=== PATIENT | female | born 1980 | race Caucasian/White ===

== ENCOUNTER → 2016-09-18 | Outpatient (CLI) | payer OTHER ==
[2016-09-18 14:31] VITALS: BP 129/75; PULSE 72; TEMP 97.7; BMI 29.8
--- NOTE | 2016-09-18 14:40 | P.BASOAP ---
Subjective Principal diagnosis: Morbid obesity Patient doing well today. She has maintained her weight since her visit in June. No significant hunger issues. Denies heartburn. Not taking any antacids currently. She has been exercising on a fairly regular basis. She is still having issues with a rash beneath the pannus that she treats with medicated powder. She has nausea without a [place] was otherwise able to tolerate all foods. She is due for blood work today. Objective - Vital Signs Vital signs: Vital Signs Temp 97.7 F 09/18/16 14:10 Pulse 72 09/18/16 14:10 Resp BP 129/75 09/18/16 14:10 Pulse Ox Intake & Output 09/17/16 09/18/16 09/18/16 18:59 06:59 18:59 Weight 86.409 kg - Exam Abdomen: Soft, nontender, nondistended, minimal irritation underneath the pannus Assessment/Plan (1) Obesities, morbid Narrative/Plan: Continue to follow advised dietary and exercise regimen. We'll check one year blood work at this time. Follow-up reevaluation in 3-6 months. Plan: Date: 09/18/16 Initial Weight: 130.294 kg Initial BMI: 44.9 Current Weight: 86.409 kg Current BMI: 29.8 Type of Surgery: Total Volume in Band: Previous Volume: Volume Removed: Volume Added: Band Size:
[2016-09-18 15:21] LABS: CH 33.2; CHCM 35.1; HCT 38.8 % (34.0-46.0); HDW 2.88; HGB 13.3 gm/dL (11.4-16.0); MCH 32.7 pg (25.0-35.0); MCHC 34.4 g/dL (31.0-37.0); MCV 95.2 fL (80.0-100.0); Mean Platelet Volume 7.9; RBC 4.07 m/uL (3.80-5.40); WBC 6.5 k/uL (3.8-10.6)
[2016-09-18 15:32] LABS: ALT 29 U/L (9-52); AST 20 U/L (14-36); Alkaline Phosphatase 72 U/L (38-126); Anion Gap 11 mmol/L; Blood Urea Nitrogen 17 mg/dL (7-17); Calcium 9.1 mg/dL (8.4-10.2); Carbon Dioxide 28 mmol/L (22-30); Chloride 103 mmol/L (98-107); Glucose 87 mg/dL (74-99); Non-African American GFR(MDRD) >60 (>60 ml/min/1.73 sqM); Potassium 3.7 mmol/L (3.5-5.1); Sodium 142 mmol/L (137-145); Total Bilirubin 0.7 mg/dL (0.2-1.3); Total Protein 7.3 g/dL (6.3-8.2)
[2016-09-18 16:38] LABS: Vitamin B12 340 pg/mL (239-931)
== END | disposition home or self-care (01) ==
LOC: BARWHC3 13:53
PROVIDERS: ATTEND Surgery
DX: Z48.815 Encounter for surgical aftercare following surgery on the digestive system (principal); Z71.3 Dietary counseling and surveillance; E66.01 Morbid (severe) obesity due to excess calories; R11.0 Nausea; Z68.29 Body mass index [BMI] 29.0-29.9, adult
CPT/HCPCS: 36415; 80053; 82306; 82607; 82746; 84425; 85027; 99211

== ENCOUNTER → 2017-02-26 | Outpatient (CLI) | payer OTHER ==
[2017-02-26 15:10] VITALS: BP 133/76; PULSE 64; RESP 20; TEMP 98.4; BMI 30.7
--- NOTE | 2017-02-26 15:43 | P.BASOAP ---
Subjective Principal diagnosis: Morbid obesity Patient doing well today. Her weight is up 5 pounds. Denies hunger. States that her weight has been fluctuating over the last several months. She has had some mild epigastric discomfort particularly during mealtime. She stopped her antiacids. Objective - Vital Signs Vital signs: Vital Signs Temp 98.4 F 02/26/17 15:02 Pulse 64 02/26/17 15:02 Resp 20 02/26/17 15:02 BP 133/76 02/26/17 15:02 Pulse Ox Intake & Output 02/25/17 02/26/17 02/26/17 18:59 06:59 18:59 Weight 88.813 kg - Exam Abdomen: Soft, nontender, nondistended Assessment/Plan (1) Obesities, morbid Narrative/Plan: Resume PPI. Continue dietary and exercise regimen. Plan upper endoscopy if the patient's pain persists. Follow-up in the office 3-4 months. Plan: Date: 02/26/17 Initial Weight: 130.294 kg Initial BMI: 44.9 Current Weight: 88.813 kg Current BMI: 30.7 Type of Surgery: Total Volume in Band: Previous Volume: Volume Removed: Volume Added: Band Size:
== END | disposition home or self-care (01) ==
LOC: BARWHC3 14:24
PROVIDERS: ATTEND Surgery
DX: E66.01 Morbid (severe) obesity due to excess calories (principal)
CPT/HCPCS: 99211

== ENCOUNTER → 2017-10-29 | Outpatient (CLI) | payer OTHER ==
[2017-10-29 15:16] VITALS: BP 130/86; PULSE 69; RESP 16; TEMP 98.9; BMI 31.6
--- NOTE | 2017-10-29 16:21 | P.BASOAP ---
Subjective Progress Note Date: 10/29/17 Principal diagnosis: Morbid obesity Patient doing well today. Weight increased slightly after her recent trip to [place]. No nausea vomiting, no GERD, no pain. 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 Taking her antiacids on an as-needed basis. Objective - Vital Signs Vital signs: Vital Signs Temp 98.9 F 10/29/17 15:12 Pulse 69 10/29/17 15:12 Resp 16 10/29/17 15:12 BP 130/86 10/29/17 15:12 Pulse Ox Intake & Output 10/28/17 10/29/17 10/29/17 18:59 06:59 18:59 Weight 91.626 kg - Exam Abdomen: Soft, nontender, nondistended Assessment/Plan (1) Obesities, morbid Narrative/Plan: We'll review the labs done by endocrinology. Continue dietary and exercise regimen. Follow-up 6-12 months. Plan: Date: 10/29/17 Initial Weight: 130.294 kg Initial BMI: 44.9 Current Weight: 91.626 kg Current BMI: 31.6 Type of Surgery: Total Volume in Band: Previous Volume: Volume Removed: Volume Added: Band Size:
== END | disposition home or self-care (01) ==
LOC: BARWHC3 14:59
PROVIDERS: ATTEND Surgery
DX: E66.01 Morbid (severe) obesity due to excess calories (principal); Z68.31 Body mass index [BMI] 31.0-31.9, adult
CPT/HCPCS: 99211

== ENCOUNTER → 2019-01-13 | Outpatient (CLI) | payer OTHER ==
--- NOTE | 2019-01-13 13:00 | P.BASOAP ---
Subjective Progress Note Date: 01/13/19 Principal diagnosis: Morbid obesity Patient here today for follow-up. Objective evaluation. Sleeve gastrectomy performed 3 years ago. Doing well at this time. Last visit 1 year ago. Since then she has gained 17 pounds. Not eating anymore than previously. Possibly some worse food choices. Denies heartburn or vomiting. Does not take antiacids. No abdominal pain. Had vitamin D level checked this morning by endocrinology. Objective - Exam Abdomen: Soft, nontender, nondistended Assessment/Plan (1) Obesities, morbid Narrative/Plan: Continue dietary and exercise regimen. Monitor food intake. Check annual labs. Follow-up 1 year. Plan: Date: Initial Weight: 130.294 kg Initial BMI: Current Weight: Current BMI: Type of Surgery: Total Volume in Band: Previous Volume: Volume Removed: Volume Added: Band Size:
[2019-01-13 14:28] LABS: HGB 10.2 gm/dL (11.4-16.0); Hypochromasia Moderate; MCH 25.8 pg (25.0-35.0); MCHC 31.9 g/dL (31.0-37.0); Mean Platelet Volume 8.4; Platelet Count 232 k/uL (150-450); RBC 3.95 m/uL (3.80-5.40); RDW 14.9 % (11.5-15.5); WBC 4.5 k/uL (3.8-10.6)
[2019-01-13 16:24] VITALS: BP 121/83; PULSE 71; TEMP 98.3; BMI 34.2
[2019-01-13 19:15] LABS: African American GFR (CKD) 125.6 (60.0-200.0); Albumin 4.3 g/dL (3.80-4.90); Albumin/Globulin Ratio 2.05 (1.60-3.17); Anion Gap 6.7 mmol/L (4.00-12.00); BUN/Creat Ratio 18.57 Ratio (12.00-20.00); Calcium 9.2 mg/dL (8.7-10.3); Carbon Dioxide 27.3 mmol/L (21.6-31.8); Globulin 2.1 g/dL (1.6-3.3); Potassium 4.1 mmol/L (3.5-5.5); Total Bilirubin 0.5 mg/dL (0.3-1.2); Total Protein 6.4 g/dL (6.2-8.2)
[2019-01-13 19:20] LABS: Folate, Serum 7.8 ng/mL
== END | disposition home or self-care (01) ==
LOC: BARWHC3 12:37
PROVIDERS: ATTEND Surgery
DX: E66.01 Morbid (severe) obesity due to excess calories (principal); K90.89 Other intestinal malabsorption; Z68.34 Body mass index [BMI] 34.0-34.9, adult
CPT/HCPCS: 36415; 80053; 82607; 82746; 83540; 85027; 99211

== ENCOUNTER → 2019-03-09 | Outpatient (CLI) | payer OTHER ==
--- NOTE | 2019-03-09 09:03 | MM ---
Reason for exam: screening (asymptomatic). Baseline mammogram. History: Family history of breast cancer in maternal cousin at age 30 and breast cancer in maternal cousin at age 50. Physical Findings: Nurse did not find any significant physical abnormalities on exam. MG Screening Mammo w CAD Bilateral CC and MLO view(s) were taken. There are scattered fibroglandular densities. No suspicious abnormality. These results were verbally communicated with the patient and result sheet given to the patient on 03/09/19. ASSESSMENT: Negative, BI-RAD 1 RECOMMENDATION: Routine screening mammogram of both breasts in 1 year.
== END | disposition home or self-care (01) ==
LOC: RADMAMWWP 07:33
PROVIDERS: ATTEND Obstetrics & Gynecology
DX: Z12.31 Encounter for screening mammogram for malignant neoplasm of breast (principal)
CPT/HCPCS: 77067

== ENCOUNTER → 2021-02-07 | Outpatient (CLI) | payer OTHER ==
--- NOTE | 2021-02-09 11:36 | MM ---
Reason for exam: screening (asymptomatic). Last mammogram was performed 1 year and 11 months ago. History: Family history of breast cancer in maternal cousin at age 30 and breast cancer in maternal cousin at age 50. Physical Findings: A clinical breast exam by your physician is recommended on an annual basis and results should be correlated with mammographic findings. MG 3D Screening Mammo W/Cad Bilateral CC and MLO view(s) were taken. Prior study comparison: March 09, 2019, bilateral MG screening mammo w CAD. There are scattered fibroglandular densities. Stable benign calcifications. There is no discrete abnormality. No significant changes when compared with prior studies. ASSESSMENT: Benign, BI-RAD 2 RECOMMENDATION: Routine screening mammogram of both breasts in 1 year.
== END | disposition home or self-care (01) ==
LOC: RADMAMWWP 07:51
PROVIDERS: ATTEND Obstetrics & Gynecology
DX: Z08 Encounter for follow-up examination after completed treatment for malignant neoplasm (principal); Z80.3 Family history of malignant neoplasm of breast
CPT/HCPCS: 77063; 77067

== ENCOUNTER → 2022-10-20 | Outpatient (CLI) | payer OTHER ==
[2022-10-20 18:15] LABS: T4, Free (Free Thyroxine) 1.48 ng/dL (0.800-1.800)
== END | disposition home or self-care (01) ==
LOC: LABWHC1 11:55
PROVIDERS: ATTEND Internal Medicine
DX: E55.9 Vitamin D deficiency, unspecified (principal); E03.9 Hypothyroidism, unspecified
CPT/HCPCS: 36415; 82306; 84439; 84443

== ENCOUNTER → 2022-11-13 | Outpatient (CLI) | payer OTHER ==
--- NOTE | 2022-11-14 08:54 | MM ---
Reason for Exam: Screening (asymptomatic). Last mammogram was performed 1 year(s) and 9 month(s) ago. Patient History: Menarche at age 11. First Full-Term at age 27. Premenopausal. Maternal cousin had breast cancer, age 30. Maternal cousin had breast cancer, age 50. Risk Values: Meera 5 year model risk: 0.9%. NCI Lifetime model risk: 10.7%. Prior Study Comparison: 03/09/2019 Bilateral Screening Mammogram, [facility]. 02/07/2021 Bilateral Screening Mammogram, [facility]. Tissue Density: The breast tissue is heterogeneously dense. This may lower the sensitivity of mammography. Findings: Analyzed By CAD. Left breast: Asymmetry within the left breast middle depth measuring 7 cm and 3.7 cm from the nipple on CC view not definitively seen on MLO view. Right breast: There is no suspicious group of microcalcifications or new suspicious mass in either breast. Overall Assessment: Incomplete: need additional imaging evaluation, BI-RAD 0 Management: Diagnostic Mammogram of the left breast. A clinical breast exam by your physician is recommended on an annual basis and results should be correlated with mammographic findings. [facility] will attempt to contact patient to return for supplemental views and ultrasound if indicated. Electronically signed and approved by: Andre Funk DO
== END | disposition home or self-care (01) ==
LOC: RADMAMWWP 10:06
PROVIDERS: ATTEND Obstetrics & Gynecology
DX: Z12.31 Encounter for screening mammogram for malignant neoplasm of breast (principal); Z80.3 Family history of malignant neoplasm of breast
CPT/HCPCS: 77063; 77067

== ENCOUNTER → 2022-11-15 | Outpatient (CLI) | payer OTHER ==
--- NOTE | 2022-11-15 14:13 | MM ---
Reason for Exam: Additional evaluation requested from abnormal screening. Last screening mammogram was performed less than 1 month ago. Patient History: Menarche at age 11. First Full-Term at age 27. Premenopausal. Maternal cousin had breast cancer, age 30. Maternal cousin had breast cancer, age 50. Risk Values: Meera 5 year model risk: 0.9%. NCI Lifetime model risk: 10.7%. Prior Study Comparison: 03/09/2019 Bilateral Screening Mammogram, [facility]. 02/07/2021 Bilateral Screening Mammogram, [facility]. 11/13/2022 Bilateral MG 3D screening mammo w/cad, [facility]. Tissue Density: Left: The breast tissue is heterogeneously dense. This may lower the sensitivity of mammography. Findings: Analyzed By CAD. There is a persistent nodular density compression view with mildly spiculated margins measuring 0.5 x 0.7 cm located 6 cm in the nipple 12:00 position. Additional workup with ultrasound is recommended. Overall Assessment: Incomplete: need additional imaging evaluation, BI-RAD 0 Management: Diagnostic Breast Ultrasound of the left breast. A negative mammogram report should not preclude additional follow up of suspicious palpable abnormalities. Patient should continue monthly self breast exam. A clinical breast exam by your physician is recommended on an annual basis and results should be correlated with mammographic findings. Electronically signed and approved by: Erick Rainey D.O. Radiologis
--- NOTE | 2022-11-15 14:47 | USB ---
Reason for Exam: Additional evaluation requested from abnormal screening. Patient History: Menarche at age 11. First Full-Term at age 27. Premenopausal. Maternal cousin had breast cancer, age 30. Maternal cousin had breast cancer, age 50. Risk Values: Meera 5 year model risk: 0.9%. NCI Lifetime model risk: 10.7%. Technique: Method: Targeted. Prior Study Comparison: 03/09/2019 Bilateral Screening Mammogram, [facility]. 02/07/2021 Bilateral Screening Mammogram, [facility]. 11/13/2022 Bilateral MG 3D screening mammo w/cad, [facility]. Findings: The upper section of the breast of the left breast, the axilla of the left breast and the retroareolar of the left breast were scanned. There is a complex cystic area measuring 0.8 x 0.4 x 0.5 cm complex cystic area 6 cm from the nipple 11:00 position. This area appears to correspond to the mammographic finding. Overall Assessment: Probably benign, BI-RAD 3 Management: Diagnostic Mammogram of the left breast in 6 months. Diagnostic Breast Ultrasound of the left breast in 6 months. A clinical breast exam by your physician is recommended on an annual basis and results should be correlated with mammographic findings. This exam should not preclude additional follow-up of suspicious palpable abnormalities. Results were given to the patient verbally at the time of exam. Electronically signed and approved by: Erick Rainey D.O. Radiologis
== END | disposition home or self-care (01) ==
LOC: RADMAMWWP 13:35
PROVIDERS: ATTEND Obstetrics & Gynecology
DX: R92.8 Other abnormal and inconclusive findings on diagnostic imaging of breast (principal); Z80.3 Family history of malignant neoplasm of breast
CPT/HCPCS: 77061; 77065

== ENCOUNTER → 2023-05-21 | Outpatient (CLI) | payer BC ==
--- NOTE | 2023-05-21 09:47 | MM ---
Reason for Exam: Follow-up at short interval from prior study. Last screening mammogram was performed 6 month(s) ago. Patient History: Menarche at age 11. First Full-Term at age 27. Premenopausal. Maternal cousin had breast cancer, age 30. Maternal cousin had breast cancer, age 50. Last menstrual period: 05/03/2023 Risk Values: Meera 5 year model risk: 0.9%. NCI Lifetime model risk: 10.7%. Prior Study Comparison: 03/09/2019 Bilateral Screening Mammogram, [facility]. 02/07/2021 Bilateral Screening Mammogram, [facility]. 11/13/2022 Bilateral MG 3D screening mammo w/cad, [facility]. 11/15/2022 Left MG 3D work up w/cad , [facility]. Tissue Density: Left: There are scattered fibroglandular densities. Findings: Analyzed By CAD. Pattern appears stable. Benign coarse calcification is within the left breast. No persistent suspicious mammographic changes. Previous nodularity is not identified on the current exam. No suspicious groups of microcalcifications, spiculated or lobular masses, architectural distortion or other secondary signs of malignancy are mammographically apparent. Overall Assessment: Benign, BI-RAD 2 Management: Screening Mammogram of both breasts in 6 months. Diagnostic Breast Ultrasound of the left breast in 6 months. A negative mammogram report should not preclude additional follow up of suspicious palpable abnormalities. Patient should continue monthly self breast exam. A clinical breast exam by your physician is recommended on an annual basis and results should be correlated with mammographic findings. Electronically signed and approved by: Erick Rainey D.O. Radiologis
--- NOTE | 2023-05-21 09:47 | USB ---
Reason for Exam: Follow-up at short interval from prior study. Patient History: Menarche at age 11. First Full-Term at age 27. Premenopausal. Maternal cousin had breast cancer, age 30. Maternal cousin had breast cancer, age 50. Risk Values: Meera 5 year model risk: 0.9%. NCI Lifetime model risk: 10.7%. Technique: Method: Targeted. Prior Study Comparison: 02/07/2021 Bilateral Screening Mammogram, [facility]. 11/13/2022 Bilateral MG 3D screening mammo w/cad, [facility]. 11/15/2022 Left US breast workup limited LT, [facility]. 11/15/2022 Left MG 3D work up w/cad LT, [facility]. Findings: The upper outer quadrant of the left breast, the axilla of the left breast and the retroareolar of the left breast were scanned. There is a hypoechoic slightly irregular area within the 11:00 position 6 cm from nipple left breast. This area appears more simple on the comparison study. No vascularity is evident. There is some good through transmission. Follow-up ultrasound in 6 months is recommended. Overall Assessment: Probably benign, BI-RAD 3 Management: Screening Mammogram of both breasts in 6 months. Diagnostic Breast Ultrasound of the left breast in 6 months. A clinical breast exam by your physician is recommended on an annual basis and results should be correlated with mammographic findings. This exam should not preclude additional follow-up of suspicious palpable abnormalities. Results were given to the patient verbally at the time of exam. Electronically signed and approved by: Erick Rainey D.O. Radiologis
== END | disposition home or self-care (01) ==
LOC: RADMAMWWP 08:17
PROVIDERS: ATTEND Obstetrics & Gynecology
DX: R92.322 Mammographic fibroglandular density, left breast (principal); Z80.3 Family history of malignant neoplasm of breast
CPT/HCPCS: 77061; 77065

== ENCOUNTER → 2023-12-10 | Outpatient (CLI) | payer BC ==
[2023-12-10 15:13] LABS: Blood Urea Nitrogen 17.6 mg/dL (9.0-27.0); Carbon Dioxide 27.8 mmol/L (21.6-31.8); Chloride 105 mmol/L (96-109); Chol/HDL Ratio 4.47 Ratio; Glucose 98 mg/dL (70-110); Potassium 4.4 mmol/L (3.5-5.5); Sodium 142 mmol/L (135-145)
[2023-12-10 15:14] LABS: ALT 16 U/L (8-44); AST 19 U/L (13-35); Albumin 4.5 g/dL (3.8-4.9); Albumin/Globulin Ratio 1.61 Ratio (1.60-3.17); Alkaline Phosphatase 104 U/L (41-126); Calcium 9.5 mg/dL (8.7-10.3); Globulin 2.8 g/dL (1.6-3.3); Total Bilirubin 0.5 mg/dL (0.3-1.2); Total Protein 7.3 g/dL (6.2-8.2)
[2023-12-10 15:52] LABS: Basophils # (A) 0.03 X 10*3/uL (0.00-0.10); Basophils % (A) 0.6 %; Eosinophils # (A) 0.08 X 10*3/uL (0.04-0.35); Eosinophils % (A) 1.5 %; HCT 41.5 % (37.2-46.3); Lymphocytes # (A) 1.49 X 10*3/uL (0.90-5.00); Lymphocytes % (A) 27.6 %; MCH 29.7 pg (27.0-32.0); MCHC 31.3 g/dL (32.0-37.0); MCV 94.7 FL (80.0-97.0); Mean Platelet Volume 11.7 FL (9.5-12.2); Monocytes # (A) 0.56 X 10*3/uL (0.20-1.00); Monocytes % (A) 10.4 %; NRBC Per 100 WBC 0 X 10*3/uL (0.00-0.01); Neutrophils # (A) 3.22 X 10*3/uL (1.80-7.70); Neutrophils % (A) 59.5 %; Platelet Count 253 X 10*3/uL (140-440); RBC 4.38 X 10*6/uL (4.10-5.20); RDW 14.2 % (11.5-14.5)
== END | disposition home or self-care (01) ==
LOC: LABWHC1 08:13
PROVIDERS: ATTEND Family Medicine
DX: Z00.00 Encounter for general adult medical examination without abnormal findings (principal); Z13.1 Encounter for screening for diabetes mellitus; E03.9 Hypothyroidism, unspecified; R63.5 Abnormal weight gain
CPT/HCPCS: 36415; 80053; 80061; 83036; 83525; 84439; 84443; 85025

== ENCOUNTER → 2023-12-10 | Outpatient (CLI) | payer BC ==
--- NOTE | 2023-12-10 08:55 | CT ---
EXAMINATION TYPE: CT abdomen pelvis wo con DATE OF EXAM: 12/10/2023 COMPARISON: None HISTORY: right inguinal pain x2 months CT DLP: 1096 mGycm Automated exposure control for dose reduction was used. TECHNIQUE: Helical acquisition of images was performed from the lung bases through the pelvis. FINDINGS: LUNG BASES: No significant abnormality is appreciated. LIVER/GB: Postcholecystectomy. Liver homogeneous in attenuation. PANCREAS: No significant abnormality is seen. SPLEEN: Measures 12.7 cm at the upper limits of normal. ADRENALS: No significant abnormality is seen. KIDNEYS: No significant abnormality is seen. FREE AIR: No free air is visualized RETROPERITONEAL ADENOPATHY: None visualized REPRODUCTIVE ORGANS: There is a finding suggestive of a intrauterine device. 2.2 cm cyst in the left ovary suspected. URINARY BLADDER: A limited by incomplete distention. PELVIC ADENOPATHY: None visualized. OSSEOUS STRUCTURES: Degenerative changes of the spine with postsurgical changes L4-L5. BOWEL: Appendix normal. No evidence of bowel obstruction. Small hiatal hernia with evidence of previ ous gastric surgery. OTHER: No evidence of inguinal hernia. No pathologic adenopathy. IMPRESSION: 1. No evidence of inguinal hernia or adenopathy. 2. Soft tissue prominence in the bilateral adnexa likely related to the ovaries recommend short-term follow-up pelvic ultrasound. 3. Postcholecystectomy. 4. Post gastric surgery with small hiatal hernia. 5. Normal appendix. 6. No hydronephrosis or nephrolithiasis.
== END | disposition home or self-care (01) ==
LOC: RADCTMAIN 07:57
PROVIDERS: ATTEND Family Medicine
DX: K44.9 Diaphragmatic hernia without obstruction or gangrene (principal); Z90.49 Acquired absence of other specified parts of digestive tract
CPT/HCPCS: 74176

== ENCOUNTER → 2023-12-17 | Outpatient (CLI) | payer BC ==
--- NOTE | 2023-12-19 10:35 | US ---
EXAMINATION TYPE: US thyroid st tissue head/neck DATE OF EXAM: 12/17/2023 COMPARISON: NONE CLINICAL INDICATION: Female, 43 years old with history of E03.9 HYPOTHYROIDISM, UNSPECIFIED; Hypothyr oidism. Patient is on synthroid x 20 years. GLAND SIZE: Right Lobe: 4.1 x 1.4 x 1.4 cm Overall Parenchyma: very heterogeneous Left Lobe: 4.7 x 1.2 x 1.4 cm Overall Parenchyma: very heterogeneous Isthmus Thickness: 0.35 cm NODULES RIGHT: # of nodules measured on right: 0 LEFT: # of nodules measured on left: 0 ISTHMUS: # of nodules measured in the isthmus: 0 Bilateral neck scanned, no evidence of lymphadenopathy. IMPRESSION: Thyroid glandular heterogeneity. No distinct nodularity seen. 2017 ACR TI-RADS LEVEL: *Highest TI-RADS level nodule reported
== END | disposition home or self-care (01) ==
LOC: RADUSWWP 15:30
PROVIDERS: ATTEND Family Medicine
DX: E04.1 Nontoxic single thyroid nodule (principal)
CPT/HCPCS: 76536

== ENCOUNTER → 2023-12-20 | Outpatient (CLI) | payer BC ==
--- NOTE | 2023-12-20 08:33 | USB ---
Reason for Exam: Additional evaluation requested from abnormal screening. Patient History: Menarche at age 11. First Full-Term at age 27. Premenopausal. Maternal cousin had breast cancer, age 30. Maternal cousin had breast cancer, age 50. Risk Values: Meera 5 year model risk: 0.9%. NCI Lifetime model risk: 10.6%. Technique: Method: Targeted. Prior Study Comparison: 11/13/2022 Bilateral MG 3D screening mammo w/cad, [facility]. 11/15/2022 Left MG 3D work up w/cad LT, [facility]. 05/21/2023 Left MG 3D diag mammo w/cad LT, [facility]. Findings: The upper section of the breast of the left breast, the axilla of the left breast and the retroareolar of the left breast were scanned. Targeted ultrasound 11:00 left breast including scanning of the subareolar region and axilla. At the 11:00 position, 6 cm from the nipple, there is redemonstrated mildly lobulated cyst/cyst cluster measuring 6 mm, unchanged for 6 months. Additional follow-up can be performed by mammogram. No other solid or cystic lesion. Overall Assessment: Probably benign, BI-RAD 3 Management: Diagnostic Mammogram of both breasts in 1 year. For a total two-year follow-up left breast and annual exam of the right breast. A clinical breast exam by your physician is recommended on an annual basis and results should be correlated with mammographic findings. This exam should not preclude additional follow-up of suspicious palpable abnormalities. Results were given to the patient verbally at the time of exam. Electronically signed and approved by: Rafal Barrios M.D. Radiologist
--- NOTE | 2023-12-20 09:48 | MM ---
Reason for Exam: Follow-up at short interval from prior study. Last mammogram was performed 1 year(s) and 1 month(s) ago. Patient History: Menarche at age 11. First Full-Term at age 27. Premenopausal. Maternal cousin had breast cancer, age 30. Maternal cousin had breast cancer, age 50. Last menstrual period: 11/22/2023 Risk Values: Meera 5 year model risk: 0.9%. NCI Lifetime model risk: 10.6%. Prior Study Comparison: 03/09/2019 Bilateral Screening Mammogram, [facility]. 02/07/2021 Bilateral Screening Mammogram, [facility]. 11/13/2022 Bilateral MG 3D screening mammo w/cad, [facility]. 11/15/2022 Left US breast workup limited LT, [facility]. 11/15/2022 Left MG 3D work up w/cad LT, [facility]. 05/21/2023 Left MG 3D diag mammo w/cad LT, [facility]. 05/21/2023 Left US breast limited LT, [facility]. Tissue Density: There are scattered areas of fibroglandular density. Findings: Analyzed By CAD. Small 6 mm area of nodularity approximately 11:00 left breast appears similar for one year. Otherwise, no significant change. Overall Assessment: Incomplete: need additional imaging evaluation, BI-RAD 0 Management: Diagnostic Breast Ultrasound of the left breast. As ordered. Electronically signed and approved by: Rafal Barrios M.D. Radiologist
== END | disposition home or self-care (01) ==
LOC: RADMAMWWP 07:20
PROVIDERS: ATTEND Obstetrics & Gynecology
DX: R92.323 Mammographic fibroglandular density, bilateral breasts (principal); Z80.3 Family history of malignant neoplasm of breast
CPT/HCPCS: 77062; 77066

== ENCOUNTER → 2024-01-27 | Outpatient (CLI) | payer BC ==
--- NOTE | 2024-01-27 12:26 | US ---
EXAMINATION TYPE: US transvaginal DATE OF EXAM: 01/27/2024 COMPARISON: CT: 12/10/23 CLINICAL INDICATION: Female, 43 years old with history of N83.209 UNSPECIFIED OVARIAN CYST, UNSPECIFI ED SIDE; cyst seen on ct. . 1 TECHNIQUE: Transvaginal (TV). Date of LMP: 01/22/24 EXAM MEASUREMENTS: Uterus: 10.0 x 5.8 x 5.3 cm Endometrial Stripe: 0.9 cm Right Ovary: 4.4 x 3.1 x 2.5 cm Left Ovary: 5.1 x 4.0 x 3.2 cm 1. Uterus: Anteverted wnl 2. Endometrium: wnl, IUD appears to be in place 3. Right Ovary: Anechoic area seen measuring 3.7 x 3.1 x 2.5cm 4. Left Ovary: cystic area seen measuring 4.4 x 3.8 x 3.3cm 5. Bilateral Adnexa: wnl 6. Posterior cul-de-sac: wnl IMPRESSION: 1. IUD within appropriate position. 2. No evidence for acute process. 3. Endometrium within normal limits for thickness. 4. Bilateral ovarian cysts similar given differences in modality 2 12/10/2023.
== END | disposition home or self-care (01) ==
LOC: RADUSWWP 10:05
PROVIDERS: ATTEND Family Medicine
DX: N83.201 Unspecified ovarian cyst, right side (principal); N83.202 Unspecified ovarian cyst, left side
CPT/HCPCS: 76830

== ENCOUNTER 2024-06-26 11:19 | Day surgery (SDC) | payer BC ==
[2024-06-24 15:08] VITALS: BMI 32.2
[2024-06-26 12:52] VITALS: TEMP 97.7
[2024-06-26] MEDS: LACTATED RINGERS 1,000 ML IV SCH (12:57)
[2024-06-26] MEDS: IV FLUID CONTINUATION 1,000 ML IV ONE (12:58)
[2024-06-26 13:00] LABS: Glucose,Whole Blood 78 mg/dL (70-110)
[2024-06-26] MEDS ORDERED: PROPOFOL 10 MG/ML 20 ML VIAL IV ONE (13:28)
[2024-06-26 14:14] VITALS: BP 103/66; PULSE 93; RESP 16
--- NOTE | 2024-06-26 14:16 | P.PCN ---
Date of Procedure: 06/26/24 Procedure(s) Performed: BRIEF HISTORY: Patient is a 43-year-old pleasant white female scheduled for an elective colonoscopy as a part of screening for colon cancer. PROCEDURE PERFORMED: Colonoscopy. PREOPERATIVE DIAGNOSIS: Screening for colon cancer. IV sedation per Anesthesia. PROCEDURE: After informed consent was obtained, the patient, was brought into the endoscopy unit. IV sedation was administered by Anesthesia under continuous monitoring. Digital rectal examination was normal. Initially the Olympus CF-160 flexible video colonoscope was then inserted in the rectum, gradually advanced into the cecum without any difficulty. Careful examination was performed as the scope was gradually being withdrawn. Ileocecal valve and the appendiceal orifice were visualized and appeared normal. Prep was fair. Some solid stools noted that was thoroughly irrigated.. Mucosa of the cecum, ascending colon, transverse colon, descending colon, sigmoid colon, and rectum appeared normal. Retroflexion was performed in the rectum and no lesions were seen. The patient tolerated the procedure well. IMPRESSION: Normal-appearing colon from rectum to cecum no evidence of colorectal neoplasia. RECOMMENDATIONS: Findings of this examination were discussed with the patient as well as her family. She was advised to have repeat screening colonoscopy in 10 years..
== END 2024-06-26 14:30 | disposition home or self-care (01) ==
LOC: ORWHC2ENDO 11:19
PROVIDERS: ATTEND Internal Medicine Gastroenterology
DX: Z12.11 Encounter for screening for malignant neoplasm of colon (principal); E11.9 Type 2 diabetes mellitus without complications; E07.9 Disorder of thyroid, unspecified; Z79.890 Hormone replacement therapy; Z98.84 Bariatric surgery status; Z98.890 Other specified postprocedural states; Z90.49 Acquired absence of other specified parts of digestive tract; Z88.5 Allergy status to narcotic agent
CPT/HCPCS: 81025; 45378; J2704